=== PATIENT | female | born 1995 ===

== ENCOUNTER 2022-03-28 22:31 | Observation (INO) | payer OTHER, SELFPAY ==
[2022-03-29 00:36] VITALS: BMI 52.3
[2022-03-29] MEDS ORDERED: Benzonatate 100 MG CAP PO PRN (03:05)
[2022-03-29] MEDS ORDERED: Acetaminophen 325 MG Suppository PR PRN ×2 (03:05)
[2022-03-29] MEDS ORDERED: Albuterol 200 PUFF (6.7GM INHALER) INH PRN (03:05)
[2022-03-29] MEDS ORDERED: Acetaminophen 325 MG TAB PO PRN (03:05)
[2022-03-29] MEDS ORDERED: Ondansetron ODT 4 MG TAB PO PRN (03:05)
[2022-03-29] MEDS ORDERED: Ondansetron PF 4 MG/2 ML Vial IVP PRN (03:05)
[2022-03-29] MEDS ORDERED: Chloraseptic Spray 180 ml Bottle PO PRN (03:08)
[2022-03-29] MEDS: Acetaminophen 325 MG TAB PO PRN ×2 (03:57→08:45)
[2022-03-29 04:58] LABS: #Lymphocytes 1.1 thou/uL (1.20-3.40); #Monocytes 0.1 thou/uL (0.11-0.59); #Neutrophils 5.1 thou/uL (1.40-6.50); %Basophils 0.6 % (0.0-1.0); %Eosinophils 0.4 % (0.0-10.0); %Lymphocytes 17.1 % (21.0-51.0); %Monocytes 2.2 % (0.0-10.0); %Neutrophils 79.7 % (42.0-75.0); Hemoglobin 13.8 g/dL (12.0-16.0); Mean Corpuscular HGB CONC 32.3 g/dL (32.0-36.0); Mean Corpuscular Hemoglobin 29.1 pg (27.0-31.0); Mean Corpuscular Volume 90.3 fl (78.0-98.0); Mean Platelet Volume 9.1 fL (7.4-10.4); Platelet Count 227 thou/uL (130-400); RBC Distribution Width 11.5 % (11.5-14.5); Red Blood Cell (RBC) Count 4.74 mill/uL (4.20-5.40); White Blood Cell (WBC) Count 6.4 thou/uL (4.8-10.8)
[2022-03-29 06:07] LABS: Anion Gap 14 mmol/L (10-20); BUN (Urea Nitrogen) 9 mg/dL (7.0-18.7); Calc. Creatinine Clearance 302 mL/min (70-130); Calcium 9.6 mg/dL (7.8-10.44); Carbon Dioxide 20 mmol/L (22-29); Chloride 108 mmol/L (98-107); Estimated GFR 123; Glucose 162 mg/dL (70-105); Potassium 4.2 mmol/L (3.5-5.1); Sodium 138 mmol/L (136-145)
[2022-03-29 07:39] VITALS: TEMP 97.8
[2022-03-29] MEDS ORDERED: Enoxaparin Sodium 40 MG/0.4 ML SYRINGE SC SCH (09:00)
[2022-03-29] MEDS ORDERED: Cholecalciferol (Vitamin D3) 400 UNITS TAB PO SCH (09:00)
[2022-03-29] MEDS ORDERED: Ascorbic Acid 500 mg Chewable Tablet PO SCH (09:00)
[2022-03-29] MEDS ORDERED: FLU VACC QS2022-23(6MOS UP)/PF 60 MCG/0.5 ML SYRINGE IM ONE (09:00)
[2022-03-29] MEDS ORDERED: Zinc Sulfate 220 MG CAP PO SCH (09:00)
[2022-03-29 11:46] VITALS: BP 129/68
== END 2022-03-29 13:30 | disposition home or self-care (01) ==
LOC: 2SW 03-29 00:15
PROVIDERS: ADMIT Internal Medicine; ATTEND Internal Medicine
DX: U07.1 COVID-19 (principal); K62.5 Hemorrhage of anus and rectum; R73.9 Hyperglycemia, unspecified; E66.01 Morbid (severe) obesity due to excess calories; Z68.43 Body mass index [BMI] 50.0-59.9, adult; Z88.8 Allergy status to other drugs, medicaments and biological substances
CPT/HCPCS: 36415; 80048; 85025; J1650; U0003; U0005